=== PATIENT | male | born 1975 | race Caucasian/White ===

== ENCOUNTER 2017-03-02 11:32 | Day surgery (SDC) | payer BC, OTHER ==
[~2017-03-02] VITALS: Ht 152.4 cm; Wt 92.4 kg
[2017-03-02] MEDS ORDERED: HYDROmorphone 2 MG/ML, 1ML ONE ×3 (13:20→15:57)
[2017-03-02] MEDS ORDERED: ONDANSETRON 2MG/ML, 2ML ONE ×2 (13:21→14:24)
[2017-03-02 13:30] LABS: BASOPHILS # (AUTO) 0.02 x10^3/uL (0-0.1); BASOPHILS % (AUTO) 0 % (0-1); EOSINOPHILS # (AUTO) 0.07 x10^3/uL (0-0.4); EOSINOPHILS % (AUTO) 1 % (1-7); LYMPHOCYTES # (AUTO) 2.71 x10^3/uL (1-3.4); LYMPHOCYTES % (AUTO) 41 % (22-44); MD NO; MEAN CORPUSCULAR HEMOGLOBIN 31.6 pg (27.5-34.5); MEAN CORPUSCULAR HGB CONC 34.8 g/dL (33.2-36.2); MEAN CORPUSCULAR VOLUME 90.7 fL (81-97); MEAN PLATELET VOLUME 9.1 fL (7.4-10.4); MONOCYTES # (AUTO) 0.56 x10^3/uL (0.2-0.8); MONOCYTES % (AUTO) 9 % (2-9); NEUTROPHILS # (AUTO) 3.29 x10^3/uL (1.8-6.8); NEUTROPHILS % (AUTO) 50 % (42-75); PLATELET COUNT 193 x10^3/uL (130-400); RED BLOOD COUNT 5.29 x10^6/uL (4.38-5.82); RED CELL DISTRIBUTION WIDTH 12.9 % (9.4-14.8)
[2017-03-02] MEDS ORDERED: HYDROmorphone 1 MG/ML, 1ML IVPush PRN (13:30)
[2017-03-02] MEDS ORDERED: ONDANSETRON 2MG/ML, 2ML IVPush ONE (13:30)
[2017-03-02] MEDS ORDERED: BUPIVACAINE/PF 0.5% ONE (13:33)
[2017-03-02] MEDS ORDERED: EPINEPHRINE 1 MG/ML, 1ML ONE (13:34)
[2017-03-02 13:42] LABS: ALBUMIN 4.2 g/dL (3.4-5.0); ANION GAP 7 mmol/L (5-15); CALCIUM 8.6 mg/dL (8.5-10.1); CHLORIDE 107 mmol/L (98-107)
[2017-03-02 13:46] LABS: ALANINE AMINOTRANSFERASE 27 U/L (12-78); ALKALINE PHOSPHATASE 71 U/L (45-117); BILIRUBIN,TOTAL 0.7 mg/dL (0.2-1.0); CREATININE 0.91 mg/dL (0.7-1.3); TOTAL PROTEIN 7.7 g/dL (6.4-8.2)
[2017-03-02] MEDS ORDERED: SUCCINYLCHOLINE 20 MG/ML, 10ML ONE (13:57)
[2017-03-02] MEDS ORDERED: LIDOCAINE-MPF 2% ,5ML ONE (13:58)
[2017-03-02] MEDS ORDERED: PROPOFOL 10 MG/ML, 20ML ONE (13:58)
[2017-03-02] MEDS ORDERED: CEFAZOLIN 1,000 MG ONE (14:03)
[2017-03-02] MEDS ORDERED: FENTANYL PF 100 MCG/2ML ONE ×3 (14:12→15:10)
[2017-03-02] MEDS ORDERED: DEXAMETHASONE 4 MG/ML, 1ML ONE ×2 (14:24)
[2017-03-02] MEDS: FENTANYL PF 100 MCG/2ML IV PRN ×4 (14:55→15:25)
[2017-03-02] MEDS ORDERED: ACETAMINOPHEN 325 MG TABLET PO PRN (15:00)
[2017-03-02] MEDS ORDERED: ONDANSETRON 2MG/ML, 2ML IVPush PRN (15:00)
[2017-03-02] MEDS ORDERED: OXYcodone 5 MG/5 ML ORAL.SOL UDC PO PRN (15:00)
[2017-03-02] MEDS ORDERED: HYDROcodone/APAP 7.5-325MG/15ML UDC PO PRN (15:00)
[2017-03-02] MEDS ORDERED: ACETAMINOPHEN 650 MG/20.3 ML UDC ONE (15:09)
[2017-03-02] MEDS ORDERED: OXYcodone 5 MG/5 ML ORAL.SOL UDC ONE (15:10)
[2017-03-02] MEDS: HYDROmorphone 1 MG/ML, 1ML IV PRN ×7 (15:20→16:30)
[2017-03-02] MEDS ORDERED: MIDAZOLAM 1 MG/ML, 2ML ONE (15:40)
[2017-03-02] MEDS: MIDAZOLAM 1 MG/ML, 2ML IV PRN ×2 (15:44→15:55)
[2017-03-02] MEDS ORDERED: ONDANSETRON 2MG/ML, 2ML IV PRN (17:30)
[2017-03-02] MEDS ORDERED: OXYcodone/APAP 5/325MG TABLET PO PRN (17:30)
[2017-03-02] MEDS ORDERED: OXYC-302 PO (17:33)
[2017-03-02] MEDS ORDERED: POLY17PO5 PO (17:33)
[2017-03-02 19:45] VITALS: BP 116/76
== END 2017-03-02 21:30 | disposition home or self-care (01) ==
LOC: OR 12:55 → EDIP 12:56 → SDC 12:56 → UNDOADMIN 12:56 → OR 13:39 → 4NOR 17:10 → EDIP 17:10 → SDC 21:30 → UNDODISIN 21:30
PROVIDERS: ATTEND Colon & Rectal Surgery
DX: K42.0 Umbilical hernia with obstruction, without gangrene (principal); E66.01 Morbid (severe) obesity due to excess calories; Z68.35 Body mass index [BMI] 35.0-35.9, adult
CPT/HCPCS: 36415; 49587; 74018; 80053; 83605; 85025; 88302; C1781; J0171; J0330; J0690; J1100; J1170; J2250; J2405; J2704; J3010; J3490

== ENCOUNTER 2018-09-16 10:36 | Outpatient (CLI) | payer OTHER | END 2018-09-16 23:59 | disposition home or self-care (01) | LOC: CFH 10:36 | PROVIDERS: ATTEND Nurse Practitioner Family | DX: R05 Cough (principal) | CPT/HCPCS: 71046 ==